=== PATIENT | female | born 1985 | race American Indian/Alaskan Native ===

== ENCOUNTER 2017-09-09 14:54 | Outpatient (CLI) | payer OTHER ==
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
== END 2017-09-09 14:55 | disposition home or self-care (01) ==
LOC: US 14:54
PROVIDERS: ATTEND Advanced Practice Midwife
DX: Z34.91 Encounter for supervision of normal pregnancy, unspecified, first trimester (principal); Z3A.01 Less than 8 weeks gestation of pregnancy
CPT/HCPCS: 76801

== ENCOUNTER 2018-03-21 07:43 | Outpatient (CLI) | payer BC ==
[2018-03-21 08:32] VITALS: BP 117/66
[2018-03-21] MEDS ORDERED: LACTATED RINGERS 500 ML IV ONE (09:00)
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
== END 2018-03-21 12:38 | disposition home or self-care (01) ==
LOC: TRG 07:43
PROVIDERS: ATTEND Obstetrics & Gynecology
DX: O47.03 False labor before 37 completed weeks of gestation, third trimester (principal); Z3A.35 35 weeks gestation of pregnancy
CPT/HCPCS: 59025; 76815; 76819

== ENCOUNTER 2018-04-22 14:13 | Outpatient (CLI) | payer BC ==
[2018-04-22 22:54] VITALS: BP 137/70
== END 2018-04-22 17:45 | disposition home or self-care (01) ==
LOC: TRG 14:13
PROVIDERS: ATTEND Obstetrics & Gynecology
DX: O47.1 False labor at or after 37 completed weeks of gestation (principal); Z3A.40 40 weeks gestation of pregnancy
CPT/HCPCS: 59025

== ENCOUNTER 2018-04-22 22:34 | Inpatient (IN) | payer BC ==
[2018-04-22] MEDS ORDERED: PITOCin/NS 20 UNIT/1000ML DRIP 20,000 MILLIUNITS/1,000 ML BAG IV ONE (22:36)
[2018-04-22] MEDS ORDERED: LACTATED RINGERS 1,000 ML ONE (22:36)
[2018-04-22] MEDS ORDERED: STADOL ONE (22:42)
[2018-04-22] MEDS ORDERED: STADOL IV PRN (23:02)
[2018-04-22] MEDS ORDERED: LACTATED RINGERS 1,000 ML IV ONE (23:03)
[2018-04-22] MEDS ORDERED: POLYCILLIN/NS 2 GM/100 ML 2 GM/100 ML BAG IV ONE (23:05)
[2018-04-22] MEDS ORDERED: PITOCin/NS 20 UNIT/1000ML DRIP 20 UNITS/1,000 ML BAG IV SCH (23:45)
[2018-04-23 00:17] LABS: Hematocrit 35.9 % (30.3-42.9); Hemoglobin 11.6 gm/dl (10.1-14.3); Mean Corpuscular HGB Conc 33 % (30-34); Mean Corpuscular Hemoglobin 28 pg (28-32); Mean Corpuscular Volume 87 fl (79-97); Platelet Count 331 K/mm3 (140-440); Red Blood Count 4.12 M/mm3 (3.65-5.03); Red Cell Distribution Width 17.4 % (13.2-15.2)
[2018-04-23] MEDS ORDERED: MINERAL OIL PO PRN (00:28)
[2018-04-23] MEDS ORDERED: BRETHINE IVP PRN (00:28)
[2018-04-23] MEDS ORDERED: ePHEDrine SULFATE ONE (00:28)
[2018-04-23] MEDS ORDERED: XYLOCAINE 2% INFILTRATI ONE (00:28)
[2018-04-23] MEDS ORDERED: ePHEDrine SULFATE IV PRN (00:28)
[2018-04-23] MEDS ORDERED: SUBLIMAZE IV PRN (00:28)
[2018-04-23] MEDS ORDERED: BRETHINE SUB-Q PRN (00:28)
[2018-04-23] MEDS ORDERED: ZOFRAN IV PRN (00:28)
[2018-04-23] MEDS ORDERED: POLYCILLIN/NS 2 GM/100 ML 2 GM/100 ML BAG IV ONE (00:28)
--- NOTE | 2018-04-23 00:31 | History and Physical Report ---
History of Present Illness Date of examination: 04/23/18 Date of admission: 04/22/18 22:34 Chief complaint: Labor History of present illness: Pt is a 33yo BF EDC 04/22/18; EGA 40 1/7 weeks presents to L&D complaining of RUC's q 3-4 mins. She received care at [facility] since 9 weeks and course has been unremarkable. records are available and GBS is unknown. Past History Past Medical History: no pertinent history Past Surgical History: no surgical history Family/Genetic History: diabetes, hypertension Social history: no significant social history, - Obstetrical History Expected Date of Delivery: 04/22/18 Actual Gestation: 40 Week(s) 2 Day(s) : 1 Medications and Allergies Allergies Allergy/AdvReac Type Severity Reaction Status Date / Time No Known Allergies Allergy Unverified 09/09/17 14:54 Home Medications Medication Instructions Recorded Confirmed Last Taken Type Ferrous Sulfate [Feosol 325 MG tab] 325 mg PO BID #60 tablet 04/23/18 Unknown Rx HYDROcodone/APAP 5-325 [[place] 1 each PO Q6HR PRN #30 tablet 04/23/18 Unknown Rx 5/325] Ibuprofen [Motrin] 800 mg PO Q8HR PRN #30 tablet 04/23/18 Unknown Rx Vit Calc,Iron,Folic 1 each PO DAILY #30 tablet 04/23/18 Unknown Rx [ Vitamins] Active Meds: Active Medications Butorphanol Tartrate (Stadol) 2 mg IV Q2H PRN PRN Reason: Labor Pain Oxytocin/Sodium Chloride (Pitocin/Ns 20 Unit/1000ml Drip) 20 units in 1,000 mls @ 0 mls/hr IV DIRECT YOUSUF Review of Systems All systems: negative - Vital Signs Vital signs: Vital Signs Temp Pulse Resp BP 98.2 F 82 18 137/70 04/22/18 22:54 04/22/18 22:54 04/22/18 22:54 04/22/18 22:54 Temp Pulse Resp BP Pulse Ox 98.2 F 82 18 137/70 04/22/18 22:54 04/22/18 22:54 04/22/18 22:54 04/22/18 22:54 - Physical Exam Breasts: Positive: deferred Cardiovascular: Regular rate Lungs: Positive: Clear to auscultation Abdomen: Positive: normal appearance Genitourinary (Female): Positive: normal external genitalia Uterus: Positive: enlarged - Obstetrical FHR: category 1 Uterine Contraction Monitor Mode: External Cervical Dilatation: 5 (per nurse) Cervical Effacement Percentage: 90 (per nurse) Uterine Contraction Pattern: Regular Uterine Tone Measurement Phase: Contraction Uterine Contraction Intensity: Moderate Results Result Diagrams: 04/23/18 18:11 Abnormal lab results 04/22/18 Range/Units 22:40 WBC 12.8 H (4.5-11.0) K/mm3 RDW 17.4 H (13.2-15.2) % All other labs normal. Laboratory Tests 04/22/18 04/22/18 04/22/18 22:40 22:40 22:40 WBC 12.8 H RBC 4.12 Hgb 11.6 Hct 35.9 MCV 87 MCH 28 MCHC 33 RDW 17.4 H Plt Count 331 RPR Nonreactive Blood Type O POSITIVE Antibody Screen Negative 04/23/18 18:11 WBC RBC Hgb 9.1 L Hct 26.9 L D MCV MCH MCHC RDW Plt Count RPR Blood Type Antibody Screen Ultrasound: report reviewed Assessment and Plan - Patient Problems (1) 40 weeks gestation of Onset Date: 04/24/18 Current Visit: Yes Status: Acute Plan to address problem: A: IUP @ 40 1/7 weeks in labor GBS unknown P: Admit to L&D for expectant vaginal delivery IV Ampicillin
[2018-04-23] MEDS ORDERED: PITOCin/NS 20 UNIT/1000ML DRIP 20 UNITS/1,000 ML BAG IV SCH ×3 (01:00→06:00)
[2018-04-23] MEDS ORDERED: PITOCin/NS 30 UNIT/500ML 30 UNITS/500 ML BAG IV SCH (01:00)
[2018-04-23] MEDS ORDERED: NARCAN 2 MG/2 ML IV PRN (01:11)
[2018-04-23] MEDS: LACTATED RINGERS 1,000 ML IV SCH ×2 (01:11→03:32)
--- NOTE | 2018-04-23 01:12 | Anesthesia Consultation ---
Anesthesia Consult and Med Hx Date of service: 04/23/18 - Airway Anesthetic Teeth Evaluation: Good, Partials Mental/Hyoid Distance: Adequate Intubation Access Assessment: Probably Good - Pre-Operative Health Status ASA Pre-Surgery Classification: ASA2, Emergency Proposed Anesthetic Plan: Epidural, Spinal - Pulmonary Hx Asthma: No - Cardiovascular System Hx Hypertension: No - Central Nervous System Hx Seizures: No Hx Psychiatric Problems: No - Endocrine Hx Renal Disease: No Hx Hypothyroidism: No Hx Hyperthyroidism: No - Hematic Hx Anemia: No Hx Sickle Cell Disease: No - Other Systems Hx Alcohol Use: No
--- NOTE | 2018-04-23 01:16 | Ultrasound Report ---
FINAL REPORT EXAM: US OB LIMITED HISTORY: Position TECHNIQUE: Real-time sonography was performed of the gravid uterus for presentation and images are submitted for interpretation. PRIORS: 09/09/2017 FINDINGS: There is a single fetus in the uterus in a cephalic presentation. The heart is beating at a rate of 153 beats per minute. IMPRESSION: Cephalic presentation
[2018-04-23] MEDS ORDERED: fentaNYL-BUPIV 2 MCG/ML-0.125% 200 MCG/100 ML BAG EPIDURAL SCH (02:00)
[2018-04-23] MEDS ORDERED: AMPICILLIN/NS 1 GM/50 ML 1 GM/50 ML BAG IV SCH ×2 (02:00→04:30)
[2018-04-23] MEDS ORDERED: PEPCID IV ONE (03:48)
[2018-04-23] MEDS ORDERED: REGLAN IV ONE (03:48)
[2018-04-23] MEDS ORDERED: BICITRA PO ONE (03:48)
[2018-04-23] MEDS ORDERED: ANCEF/STERILE WATER 2 GM/20 ML 2 GM/20 ML SYRINGE IV NR (04:00)
[2018-04-23] MEDS ORDERED: LACTATED RINGERS 1,000 ML IV SCH (04:00)
[2018-04-23] MEDS ORDERED: NACL 0.9% IR ONE (04:25)
[2018-04-23] MEDS ORDERED: WATER FOR IRRIG STERILE IR ONE (04:25)
[2018-04-23] MEDS ORDERED: XYLOCAINE MPF 2% ONE (04:33)
[2018-04-23] MEDS ORDERED: MORPHINE ONE (04:34)
[2018-04-23] MEDS ORDERED: PHENERGAN PR PRN (05:11)
[2018-04-23] MEDS ORDERED: NARCAN 0.4 MG/1 ML IV PRN (05:11)
[2018-04-23] MEDS ORDERED: SENOKOT PO PRN (05:11)
[2018-04-23] MEDS ORDERED: MILK OF MAGNESIA PO PRN (05:11)
[2018-04-23] MEDS ORDERED: NORCO 5/325 PO PRN (05:11)
[2018-04-23] MEDS ORDERED: TYLENOL PO PRN (05:11)
[2018-04-23] MEDS ORDERED: TUCKS PAD TP PRN (05:11)
--- NOTE | 2018-04-23 05:22 | Operative Report ---
Operative Report Operative Report: Date of procedure: 04/23/2018 Pre-operative diagnosis: 1. Intrauterine at 40-1/7 weeks 2. Malpresentation -face presentation Post-operative diagnosis: Same Procedure name(s): Primary low transverse section Surgeon: Arsh Block MD Press Cutter: None Anesthesia: Epidural anesthesia EBL: 500 mL Findings: A 3594 g female infant 7 at 1 minute and 9 at 5 minutes. Face presentation. Meconium fluid. Normal uterus. Normal tubes and ovaries bilaterally. Procedure: After the patient was prepped and draped in usual sterile fashion, and after satisfactory level of epidural anesthesia was obtained, the skin knife was used to make a transverse skin incision. The incision was excised down to layer of the fascia, which was nicked in the midline and extended laterally using the Bovie cautery. The rectus muscles were dissected off the rectus fascia both superiorly and inferiorly. The rectus bellies in the midline, and the peritoneum was entered under direct visualization. The peritoneal incision was extended superiorly and inferiorly. A bladder flap was created and the bladder blade was then placed. The uterus was scored in a curvilinear linear fashion, entered in the midline revealing meconium amniotic fluid. The infant's head was delivered onto the surgical field, and the oropharynx and nasopharynx were bulb suctioned. The rest of the 's body was delivered, cord was doubly clamped and cut and the infant was handed to the waiting respiratory team. Cord blood was then obtained. The placenta was manually removed from the uterus, and the uterus removed from its normal anatomical position. After gentle uterine lavage, the incision was inspected and found to be without extensions. It was then closed in 2 layers using 0 Vicryl suture in a running interlocking fashion, the second layer imbricating the first. After good hemostasis was achieved, copious amounts or irrigation was performed, and the gutters were suctioned free of blood and blood clots. Tisseel sealant was sprayed across the uterine incision. The uterus was then returned to its normal anatomical position, and after excellent hemostasis assured, the peritoneum was re-approximated using 3-0 Vicryl suture in a running interlocking fashion, and then the rectus muscles were re-approximated using 3-0 Vicryl suture in a [id number] configuration. The fascia was then re-approximated using 0 Vicryl suture in running interlocking fashion. The subcutaneous layer was made hemostatic using Bovie cautery, the Tisseel sealant was sprayed across the fascial incision and the skin edges re- approximated using 4-0 Vicryl suture in a sub-cuticular fashion. Patient tolerated the procedure well was transported to recovery in stable condition.
--- NOTE | 2018-04-23 05:31 | Anesthesia Day of Surgery ---
Anesthesia Day of Surgery - Day of Surgery Patient Examined: Yes Patient H&P Reviewed: Yes Patient is NPO: No (FSP)
--- NOTE | 2018-04-23 05:31 | Post Anesthesia Evaluation ---
- Post Anesthesia Evaluation Patient Participated: Yes Airway Patent: Yes Stable Respiratory Function: Yes Temp > 96.8F: Yes Pain Manageable: Yes Adequeate Hydration: Yes Anesthesia Complications: No Block Receding Appropriately: Yes
[2018-04-23] MEDS ORDERED: SODIUM CHLORIDE FLUSH SYRINGE 10 ML IV NR (06:00)
[2018-04-23] MEDS ORDERED: D5LR 1,000 ML IV SCH (06:00)
[2018-04-23] MEDS: TORADOL IV PRN ×2 (06:47→18:51)
[2018-04-23] MEDS: FEOSOL PO SCH (09:22)
[2018-04-23] MEDS: BENADRYL IV PRN ×2 (09:22→15:59)
[2018-04-23] MEDS: PRENATAL VITAMIN PO SCH (09:22)
[2018-04-23] MEDS: LANSINOH TP PRN (09:30)
[2018-04-23] MEDS: ANCEF/NS 1 GM/50 ML 1 GM/50 ML BAG IV SCH ×2 (12:43→20:03)
[2018-04-23] MEDS: MYLICON PO PRN (15:59)
[2018-04-23 18:20] LABS: Hematocrit 26.9 % (30.3-42.9); Hemoglobin 9.1 gm/dl (10.1-14.3)
[2018-04-24] MEDS: PERCOCET 5/325 PO PRN ×3 (05:02→17:00)
[2018-04-24] MEDS ORDERED: BOOSTRIX IM ONE (06:00)
[2018-04-24] MEDS ORDERED: M-M-R II VACCINE SUB-Q ONE (06:00)
[2018-04-24] MEDS: PRENATAL VITAMIN PO SCH (11:30)
[2018-04-24] MEDS: FEOSOL PO SCH (11:30)
--- NOTE | 2018-04-24 11:37 | Progress Note ---
Assessment and Plan - Patient Problems (1) 40 weeks gestation of Onset Date: 04/24/18 Current Visit: Yes Status: Resolved (2) Status post Onset Date: 04/24/18 Current Visit: Yes Status: Resolved Plan to address problem: A: S/P C Section - POD #1 Doing well Acute blood loss anemia - stable P: Continue RPOC Anticipate discharge within 24-48hrs (3) Acute blood loss anemia Onset Date: 04/24/18 Current Visit: Yes Status: Resolved Subjective - Subjective Date of service: 04/24/18 Principal diagnosis: s/p C Section - POD #1 Interval history: Pt is feeling well without complaints. Bleeding has improved. She is tolerating a liquid diet without nausea or vomiting. Patient reports: appetite normal, voiding normally, pain well controlled, flatus , ambulating normally, no dizzy ambulation, no nauseated [place]: doing well, bottle feeding Objective - Vital Signs Latest vital signs: Vital Signs Temp Pulse Resp BP BP Pulse Ox 04/24/18 10:50 20 04/24/18 08:30 98.3 F 78 14 112/69 99 04/24/18 01:00 98.3 F 63 20 119/67 97 04/23/18 22:09 98.7 F 87 20 113/58 100 04/23/18 21:10 98.2 F 52 L 18 113/58 98 04/23/18 18:51 18 04/23/18 16:09 98.7 F 90 18 111/72 100 04/23/18 11:36 98.7 F 83 18 103/53 99 Intake and Output 04/23/18 04/24/18 04/24/18 22:59 06:59 14:59 Intake Total 240 120 Output Total 1200 250 Balance -960 -130 Intake: Oral 240 120 Output: Urine 1200 250 Indwelling Catheter 900 Void 300 250 Other: Total, Intake Amount 240 120 Total, Output Amount 300 250 # Voids Void 1 1 - Exam Breasts: Present: deferred Cardiovascular: Present: Regular rate Lungs: Present: Clear to auscultation Abdomen: Present: normal appearance, soft Uterus: Present: normal, firm, fundal height below umbilicus Extremities: Present: normal Incision: Present: normal, dry, intact, dressed - Labs Labs: Abnormal lab results 04/23/18 Range/Units 18:11 Hgb 9.1 L (10.1-14.3) gm/dl Hct 26.9 L D (30.3-42.9) % Laboratory Tests 04/22/18 04/22/18 04/22/18 22:40 22:40 22:40 WBC 12.8 H RBC 4.12 Hgb 11.6 Hct 35.9 MCV 87 MCH 28 MCHC 33 RDW 17.4 H Plt Count 331 RPR Nonreactive Blood Type O POSITIVE Antibody Screen Negative 04/23/18 18:11 WBC RBC Hgb 9.1 L Hct 26.9 L D MCV MCH MCHC RDW Plt Count RPR Blood Type Antibody Screen
[2018-04-24] MEDS: MYLICON PO PRN ×2 (14:51→22:12)
[2018-04-25] MEDS: PERCOCET 5/325 PO PRN (01:47)
[2018-04-25] MEDS: MOTRIN PO PRN ×2 (01:47→14:15)
[2018-04-25] MEDS ORDERED: DULCOLAX PR PRN (01:54)
[2018-04-25] MEDS: FEOSOL PO SCH (10:19)
[2018-04-25] MEDS: PRENATAL VITAMIN PO SCH (10:19)
--- NOTE | 2018-04-25 10:58 | Progress Note ---
Assessment and Plan - Patient Problems (1) 40 weeks gestation of Onset Date: 04/24/18 Current Visit: Yes Status: Resolved (2) Status post Onset Date: 04/24/18 Current Visit: Yes Status: Resolved Plan to address problem: A: S/P C Section - POD #2 Doing well Acute blood loss anemia - stable P: May go home today. (3) Acute blood loss anemia Onset Date: 04/24/18 Current Visit: Yes Status: Resolved Subjective - Subjective Date of service: 04/25/18 Principal diagnosis: s/p C Section - POD #2 Interval history: Pt is feeling well without complaints. She is tolerating a reg diet without nausea or vomiting, ambulating and voiding without difficulty. Patient reports: appetite normal, voiding normally, pain well controlled, flatus , ambulating normally, no dizzy ambulation, no nauseated [place]: doing well, nursing well Objective - Vital Signs Latest vital signs: Vital Signs Temp Pulse Resp BP BP Pulse Ox 04/25/18 00:40 98.2 F 68 20 117/63 98 04/24/18 17:00 20 04/24/18 14:58 98.4 F 91 H 18 118/69 99 Intake and Output 04/24/18 04/25/18 04/25/18 22:59 06:59 14:59 Intake Total 240 Balance 240 Intake: Oral 240 Other: Total, Intake Amount 240 # Voids Void 1 - Exam Breasts: Present: deferred Cardiovascular: Present: Regular rate Lungs: Present: Clear to auscultation Abdomen: Present: normal appearance, soft Uterus: Present: normal, firm, fundal height below umbilicus Extremities: Present: normal Incision: Present: normal, dry, intact
--- NOTE | 2018-04-25 15:16 | Discharge Summary ---
Providers - Providers Date of Admission: 04/22/18 22:34 Date of discharge: 04/25/18 Attending physician: MOISES SANZ Primary care physician: MOISES SANZ Hospitalization Reason for admission: active labor, rupture of membranes, IUP at term Delivery: Procedure: section, primary low transverse Laceration: none Incision: normal, dry, intact Other procedures: none complications: none Discharge diagnosis: IUP at term delivered [place] baby: female Hospital course: Pt is a 33yo BF EDC 04/22/18; EGA 40 10/02 weeks who presented to L&D complaining of RUC's q 3-4 mins. She progressed in labor, but had a face presentation, and thus was delivered by C Section. By POD #2 she was tolerating a reg diet without nausea or vomiting, ambulating and voiding without difficulty. She was therefore discharged to home on POD #2 in stable condition. Condition at discharge: Good Disposition: DC-01 TO HOME OR SELFCARE - Discharge Diagnoses (1) 40 weeks gestation of Status: Resolved (2) Status post Status: Resolved (3) Acute blood loss anemia Status: Resolved Plan - Discharge Medications Prescriptions: Ferrous Sulfate [Feosol 325 MG tab] 325 mg PO BID #60 tablet HYDROcodone/APAP 5-325 [[place] 5/325] 1 each PO Q6HR PRN #30 tablet PRN Reason: Pain Ibuprofen [Motrin] 800 mg PO Q8HR PRN #30 tablet PRN Reason: Moder Pain Unrelieved By [place] Vit Calc,Iron,Folic [ Vitamins] 1 each PO DAILY #30 tablet - Provider Discharge Summary Activity: routine, no sex for 6 weeks, no heavy lifting 4 weeks, no strenuous exercise Diet: routine Instructions: routine Additional instructions: [] Smoking cessation referral if applicable(refer to patient education folder for contact #) [] Refer to [facility] Booklet Call your doctor immediately for: * Fever > 100.5 * Heavy vaginal bleeding ( >1 pad per hour) * Severe persistent headache * Shortness of breath * Reddened, hot, painful area to leg or breast * Drainage or odor from incision. * Keep incision clean and dry at all times and follow doctor's instructions regarding bathing/showering - Follow up plan Follow up: MOISES SANZ MD [Primary Care Provider] - 14 Days EFFIE YODER CNM [Advanced Practice Nurse] - 14 Days
[2018-04-25 17:37] VITALS: BP 122/67
[2018-04-25] MEDS: LANSINOH TP PRN (19:21)
== END 2018-04-25 19:29 | disposition home or self-care (01) | DRG 765 ==
LOC: LD 22:34 → OB 04-23 06:48
PROVIDERS: ADMIT Obstetrics & Gynecology; ATTEND Obstetrics & Gynecology
PROC: 10D00Z1 Extraction of Products of Conception, Low, Open Approach (ICD-10-PCS; principal; 2018-04-23)
PROC: 3E0234Z Introduction of Serum, Toxoid and Vaccine into Muscle, Percutaneous Approach (ICD-10-PCS; 2018-04-24)
DX: O32.3XX0 Maternal care for face, brow and chin presentation, not applicable or unspecified (principal); D62 Acute posthemorrhagic anemia; O77.0 Labor and delivery complicated by meconium in amniotic fluid; O90.81 Anemia of the puerperium; Z3A.40 40 weeks gestation of pregnancy; Z37.0 Single live birth; Z23 Encounter for immunization
CPT/HCPCS: 36415; 76815; 85014; 85018; 85027; 86592; 86765; 86850; 86900; 86901; 90471; 90707; 90715; 99211; A6250; C9250; G0463; J0290; J0595; J0690; J1200; J1885; J2270; J2590; J2765; J7120; J7121

== ENCOUNTER 2018-05-03 19:04 | Emergency (ER) | payer BC ==
[2018-05-03 19:38] VITALS: BP 121/74
[2018-05-03 20:09] LABS: Basophils # (Auto) 0.1 K/mm3 (0.0-0.1); Basophils % (Auto) 0.7 % (0.0-1.8); Eosinophils # (Auto) 0.1 K/mm3 (0.0-0.4); Eosinophils % (Auto) 1.3 % (0.0-4.3); Hemoglobin 11.1 gm/dl (10.1-14.3); Lymphocytes # (Auto) 1.9 K/mm3 (1.2-5.4); Lymphocytes % (Auto) 24.6 % (13.4-35.0); Mean Corpuscular HGB Conc 32 % (30-34); Mean Corpuscular Hemoglobin 28 pg (28-32); Mean Corpuscular Volume 88 fl (79-97); Monocytes # (Auto) 0.7 K/mm3 (0.0-0.8); Monocytes % (Auto) 8.8 % (0.0-7.3); Platelet Count 450 K/mm3 (140-440); Red Blood Count 3.99 M/mm3 (3.65-5.03); Red Cell Distribution Width 18.8 % (13.2-15.2)
[2018-05-03 20:23] LABS: Alanine Aminotransferase 15 units/L (7-56); Albumin 3.6 g/dL (3.9-5); BUN/Creatinine Ratio 13; Blood Urea Nitrogen 10 mg/dL (7-17); Calcium 9.1 mg/dL (8.4-10.2); Hemolysis Index 17; Lipase 45 units/L (13-60)
[2018-05-03 21:22] LABS: Bilirubin,Urine NEG (Negative); Blood,Urine NEG (Negative); Color,Urine Yellow (Yellow); Mucus,Urine 2+ /HPF; RBC,Urine < 1.0 /HPF (0.0-6.0); Urobilinogen,Urine < 2.0 mg/dL (<2.0)
== END 2018-05-03 20:30 | disposition left against medical advice (07) ==
LOC: ED 19:04
DX: O90.0 Disruption of cesarean delivery wound (principal); Z53.21 Procedure and treatment not carried out due to patient leaving prior to being seen by health care provider
CPT/HCPCS: 36415; 80053; 81001; 83690; 84703; 85025